=== PATIENT | female | born 1990 | race Caucasian/White ===

== ENCOUNTER → 2017-07-21 | Outpatient (CLI) | payer OTHER ==
[2017-07-21 15:28] LABS: BASO % 0.4 % (0.0-2.0); EOS # 0.1 (0.0-0.7); EOS % 1.7 % (0-4.0); GRAN # 2.2 (1.4-6.5); GRAN % 41.7 % (42.2-75.2); LYMPH # 2.6 (1.2-3.4); LYMPH % 49.2 % (20.0-51.0); MEAN CELL VOLUME 79 fl (80.0-100.0); MEAN CORPUSCULAR HGB CONC 33 g/dl (33.0-37.0); MEAN PLATELET VOLUME 11.7 fl (7.4-10.4); MONO # 0.4 (0.1-0.6); MONO % 6.8 % (1.7-9.3); PLATELET COUNT 214 K/mm3 (130-400); RED BLOOD COUNT 4.22 M/mm3 (4.10-5.30); REDCELL DISTRIBUTION WIDTH-CV 15.9 % (11.5-14.5)
[2017-07-21 15:38] LABS: ALANINE AMINOTRANSFERASE 28 U/L (9-52); ALBUMIN 4.2 gm/dL (3.5-5.0); ALKALINE PHOSPHATASE 57 U/L (50-136); ANION GAP 13 mmol/L (7-16); AST,SGOT 21 U/L (15-37); BILIRUBIN,TOTAL 1.1 mg/dL (0.0-1.0); BLOOD UREA NITROGEN 15 mg/dL (7-17); CALCIUM 9.3 mg/dL (8.4-10.2); CARBON DIOXIDE 23 mmol/L (22-30); CHLORIDE 105 mmol/L (98-107); CREATININE, serum 0.69 mg/dL (0.52-1.25); GLUCOSE 89 mg/dL (74-106); POTASSIUM 4.1 mmol/L (3.4-5.0); SODIUM 141 mmol/L (137-145); TOTAL PROTEIN 7.5 gm/dL (6.4-8.2)
[2017-07-21 15:39] LABS: C-REACTIVE PROTEIN < 0.5 mg/dL (0.0-0.9)
[2017-07-21 15:42] LABS: HEMATOCRIT 33.4 % (37.0-47.0); MEAN CORPUSCULAR HEMOGLOBIN 26 pg (27.0-31.0)
[2017-07-21 15:59] LABS: ERYTHROCYTE SEDIMENTATION RATE 6 mm/hr (0-20)
== END ==
LOC: COL.LAB 14:49
PROVIDERS: Internal Medicine Infectious Disease
DX: L02.91 Cutaneous abscess, unspecified (principal)

== ENCOUNTER → 2017-08-30 | Outpatient (CLI) | payer OTHER | LOC: COL.RAD 12:33 | DX: N92.1 Excessive and frequent menstruation with irregular cycle (principal) ==

== ENCOUNTER → 2017-09-12 | Outpatient (CLI) | payer OTHER ==
[~2017-09-12] MED LIST: ZOFRAN ODT4 MG PO
== END ==
LOC: COL.RAD 08:15
DX: R51 Headache (principal); E22.1 Hyperprolactinemia
CPT/HCPCS: A9585

== ENCOUNTER 2017-09-13 16:19 | Emergency (ER) | payer OTHER ==
[~2017-09-13] VITALS: Ht 152.4 cm; Wt 65.9 kg
[2017-09-13 16:23] VITALS: TEMP 98.7
[2017-09-13] MEDS ORDERED: ZOFRAN ODT4 MG PO (18:15)
[2017-09-13 18:25] VITALS: BP 105/72; PULSE 71
== END 2017-09-13 18:26 | disposition home or self-care (01) ==
LOC: COL.ER 16:19
DX: G43.909 Migraine, unspecified, not intractable, without status migrainosus (principal); Z98.890 Other specified postprocedural states
CPT/HCPCS: J1885; J2550

== ENCOUNTER → 2017-09-27 | Outpatient (CLI) | payer OTHER | LOC: COL.RAD 08:00 | DX: Z31.41 Encounter for fertility testing (principal); R51 Headache; Z98.890 Other specified postprocedural states | CPT/HCPCS: Q9967 ==